=== PATIENT | male | born 1945 | race Caucasian/White ===

== ENCOUNTER → 2018-11-11 | Outpatient (CLI) | payer MEDICARE ==
--- NOTE | 2018-11-11 18:39 | MR ---
EXAMINATION TYPE: MR cervical spine wo con DATE OF EXAM: 11/11/2018 COMPARISON: None HISTORY: Radiculopathy TECHNIQUE: Multiplanar, multisequence images of the cervical spine were acquired. C2-C3: Degenerative disc disease and facet arthropathy with marked changes at the left. Uncovertebral joint hypertrophy noted. Findings result in moderate left-sided foraminal encroachment and mild righ t-sided foraminal encroachment. Ligamentum flavum hypertrophy noted. C3-C4: Degenerative disc disease and bilateral facet arthropathy greater on the left. There is uncove rtebral joint hypertrophy which contributes to moderate severe left-sided foraminal encroachment and moderate right foraminal encroachment. Central disc bulging with no discrete herniation or canal sten osis C4-C5: Degenerative disc disease with bilateral facet arthropathy greater on the right. Bilateral unc overtebral joint hypertrophy and there is severe bilateral foraminal encroachment. No canal stenosis or disc herniation. C5-C6: Degenerative disc disease with broad-based central disc bulging. There is facet arthropathy an d mild to moderate bilateral foraminal encroachment. There is borderline central stenosis. There is a 1 to 2 mm retrolisthesis of C5 relative to C6. C6-C7: Degenerative disc disease with broad-based disc bulging and mild central stenosis. Facet arthr opathy is marked with moderate to severe bilateral foraminal encroachment C7-T1: No disc herniation or canal stenosis. Neural foramina remain patent. Degenerative disc noted. Cervical segments are intact. . Cervical spinal cord is of normal signal. Craniovertebral junction relationships are within normal limits. IMPRESSION: 1. There is multilevel degenerative disc disease and multilevel severe facet arthropathy resulting in multilevel moderate to severe foraminal encroachment as discussed above. 2. Borderline central stenosis C5-C6 due to disc bulging and hypertrophic changes. 3. Mild central stenosis C6-C7 due to broad-based disc bulging and hypertrophic changes.
== END | disposition home or self-care (01) ==
LOC: RADMRIMAIN 11:50
PROVIDERS: ATTEND Family Medicine
DX: M48.02 Spinal stenosis, cervical region (principal); M50.11 Cervical disc disorder with radiculopathy, high cervical region; M50.822 Other cervical disc disorders at C5-C6 level
CPT/HCPCS: 72141

== ENCOUNTER 2021-03-23 10:24 | Inpatient (IN) | payer MEDICARE ==
--- NOTE | 2021-03-23 11:09 | ED ---
General Adult HPI - General Chief complaint: Shortness of Breath Stated complaint: SOB Time Seen by Provider: 03/23/21 10:34 Source: patient Mode of arrival: ambulatory - History of Present Illness Initial comments: Dictation was produced using [employer] dictation software. please excuse any grammatical, word or spelling errors. Chief Complaint: 75-year-old male with past medical history of coronary artery disease status post coronary artery bypass grafting presents emergency for exertional dyspnea worsening especially over the last 2 days History of Present Illness: 74 year old male who has past medical history of heart attack, coronary artery disease. States that 1989 he had coronary artery bypass grafting. States his been fine until 2007. Slowly thereafter he started having worsening shortness of breath. The last 2 days his been significantly w orse to the point where he feels very winded even after getting up to take 10 steps. Denies any symptoms at rest. His symptoms go away at rest. His family member convinced him to come and be evaluated for heart issues. Denies any fever. No chest pain. No leg swelling. Sometimes he gets left calf pain. The ROS documented in this emergency department record has been reviewed and confirmed by me. Those systems with pertinent positive or negative responses have been documented in the HPI. All other systems are other negative and/or noncontributory. PHYSICAL EXAM: General Impression: Alert and oriented x3, not in acute distress HEENT: Normocephalic atraumatic, extra-ocular movements intact, pupils equal and reactive to light bilaterally, mucous membranes moist. Cardiovascular: Heart regular rate and rhythm Chest: Able to complete full sentences, no retractions, no tachypnea, clear to auscultation bilaterally Abdomen: abdomen soft, non-tender, non-distended, no organomegaly Musculoskeletal: Pulses present and equal in all extremities, no peripheral edema Motor: no focal deficits noted Neurological: CN II-XII grossly intact, no focal motor or sensory deficits noted Skin: Intact with no visualized rashes Psych: Normal affect and mood ED course: 75-year-old male presents with acute exertional dyspnea his past medical history of coronary artery disease status post coronary artery bypass grafting as upon arrival are within acceptable limits. EKG does not show any signs of ischemia or infarction. He is asymptomatic at the bedside. Limited evaluation obtained. CBC unremarkable. Hemoglobin and platelet count stable. D-dimer is elevated 3.53. Metabolic panel shows troponin 0.051. Brain natruretic peptide of 2000. Coronavirus is negative. Chest x-ray shows mild cardiomegaly with strandy basilar atelectasis. CT angiogram of the chest shows subtle pulmonary embolus. CT evidence for right heart strain at this time. There is bilateral pulmonary burden. Given elevated troponin and findings of pulmonary embolus is concern for submassive PE. Patient has stable blood pressure and is well-appearing at this time. Case is discussed with Dr. Sanchez of basilar surgery and intensive care doctor, Dr. Lr. Stat echocardiogram ordered. Patient be admitted to the ICU. EKG interpretation: Ventricular rate 88, sinus rhythm,. 180, QRS 12, QTC 411. No GA prolongation, no QTC prolongation, no ST or T-wave changes noted. No old EKG for comparison. Overall, this EKG is nonspecific Review of Systems ROS Statement: Those systems with pertinent positive or pertinent negative responses have been documented in the HPI. ROS Other: All systems not noted in ROS Statement are negative. Past Medical History Past Medical History: Chest Pain / Angina, Myocardial Infarction ([place]) History of Any Multi-Drug Resistant Organisms: None Reported Past Surgical History: Coronary Bypass/CABG, Heart Catheterization With Stent Additional Past Surgical History / Comment(s): hemorroid removal Past Psychological History: No Psychological Hx Reported Smoking Status: Former smoker Past Alcohol Use History: Daily Past Drug Use History: None Reported Course Vital Signs 03/23/21 10:34 Temperature 98.4 F Pulse Rate 86 Respiratory 18 Rate Blood Pressure 166/91 O2 Sat by Pulse 94 L Oximetry Medical Decision Making - Lab Data Result diagrams: 03/23/21 10:53 03/23/21 10:53 Lab Results 03/23/21 03/23/21 03/23/21 Range/Units 10:53 10:53 10:53 WBC 4.9 (3.8-10.6) k/uL RBC 4.42 (4.30-5.90) m/uL Hgb 14.6 (13.0-17.5) gm/dL Hct 42.5 (39.0-53.0) % MCV 96.2 (80.0-100.0) fL MCH 33.1 (25.0-35.0) pg MCHC 34.5 (31.0-37.0) g/dL RDW 13.6 (11.5-15.5) % Plt Count 121 L (150-450) k/uL MPV 7.4 Neutrophils % 65 % Lymphocytes % 27 % Monocytes % 5 % Eosinophils % 1 % Basophils % 0 % Neutrophils # 3.2 (1.3-7.7) k/uL Lymphocytes # 1.3 (1.0-4.8) k/uL Monocytes # 0.3 (0-1.0) k/uL Eosinophils # 0.1 (0-0.7) k/uL Basophils # 0.0 (0-0.2) k/uL D-Dimer 3.53 H (<0.60) mg/L FEU Sodium 140 (137-145) mmol/L Potassium 4.5 (3.5-5.1) mmol/L Chloride 106 (98-107) mmol/L Carbon Dioxide 26 (22-30) mmol/L Anion Gap 8 mmol/L BUN 20 (9-20) mg/dL Creatinine 0.78 (0.66-1.25) mg/dL Est GFR (CKD-EPI)AfAm >90 (>60 ml/min/1.73 sqM) Est GFR (CKD-EPI)NonAf 88 (>60 ml/min/1.73 sqM) Glucose 201 H (74-99) mg/dL Calcium 9.6 (8.4-10.2) mg/dL Troponin I (0.000-0.034) ng/mL NT-Pro-B Natriuret Pep pg/mL Coronavirus (PCR) (Not Detectd) 03/23/21 03/23/21 03/23/21 Range/Units 10:53 10:53 10:53 WBC (3.8-10.6) k/uL RBC (4.30-5.90) m/uL Hgb (13.0-17.5) gm/dL Hct (39.0-53.0) % MCV (80.0-100.0) fL MCH (25.0-35.0) pg MCHC (31.0-37.0) g/dL RDW (11.5-15.5) % Plt Count (150-450) k/uL MPV Neutrophils % % Lymphocytes % % Monocytes % % Eosinophils % % Basophils % % Neutrophils # (1.3-7.7) k/uL Lymphocytes # (1.0-4.8) k/uL Monocytes # (0-1.0) k/uL Eosinophils # (0-0.7) k/uL Basophils # (0-0.2) k/uL D-Dimer (<0.60) mg/L FEU Sodium (137-145) mmol/L Potassium (3.5-5.1) mmol/L Chloride (98-107) mmol/L Carbon Dioxide (22-30) mmol/L Anion Gap mmol/L BUN (9-20) mg/dL Creatinine (0.66-1.25) mg/dL Est GFR (CKD-EPI)AfAm (>60 ml/min/1.73 sqM) Est GFR (CKD-EPI)NonAf (>60 ml/min/1.73 sqM) Glucose (74-99) mg/dL Calcium (8.4-10.2) mg/dL Troponin I 0.051 H* (0.000-0.034) ng/mL NT-Pro-B Natriuret Pep 2010 pg/mL Coronavirus (PCR) Not Detected (Not Detectd) Critical Care Time Critical Care Time: Yes Total Critical Care Time: 33 Disposition Clinical Impression: Pulmonary embolism Disposition: ADMITTED IP TO THIS HOSP Condition: Critical Referrals: Linda Bob MD [Primary Care Provider] - 1-2 days
[2021-03-23 11:11] LABS: Basophils % (A) 0 %; Eosinophils # (A) 0.1 k/uL (0-0.7); Eosinophils % (A) 1 %; HCT 42.5 % (39.0-53.0); HGB 14.6 gm/dL (13.0-17.5); Lymphocytes # (A) 1.3 k/uL (1.0-4.8); Lymphocytes % (A) 27 %; MCH 33.1 pg (25.0-35.0); MCHC 34.5 g/dL (31.0-37.0); MCV 96.2 fL (80.0-100.0); Mean Platelet Volume 7.4; Monocytes # (A) 0.3 k/uL (0-1.0); Monocytes % (A) 5 %; Neutrophils # (A) 3.2 k/uL (1.3-7.7); Neutrophils % (A) 65 %; Platelet Count 121 k/uL (150-450); RBC 4.42 m/uL (4.30-5.90); RDW 13.6 % (11.5-15.5); WBC 4.9 k/uL (3.8-10.6)
[2021-03-23 11:29] LABS: African American GFR (CKD) >90 (>60 ml/min/1.73 sqM); Anion Gap 8 mmol/L; Blood Urea Nitrogen 20 mg/dL (9-20); Calcium 9.6 mg/dL (8.4-10.2); Carbon Dioxide 26 mmol/L (22-30); Chloride 106 mmol/L (98-107); Glucose 201 mg/dL (74-99); Non-African American GFR(CKD) 88 (>60 ml/min/1.73 sqM); Potassium 4.5 mmol/L (3.5-5.1); Sodium 140 mmol/L (137-145)
--- NOTE | 2021-03-23 12:17 | XR ---
EXAMINATION TYPE: XR chest 1V portable DATE OF EXAM: 03/23/2021 Comparison: None Clinical History: 75-year-old male short of breath, dyspnea Findings: Median sternotomy wires are present. Post-CABG clips mediastinum. Heart mildly enlarged. Interstitial prominence largely chronic appearing. No shashank consolidation or pleural effusion. Some strandy atele ctasis in the lower lungs. Impression: Mild cardiomegaly and some strandy basilar atelectasis.
[2021-03-23] MEDS ORDERED: HEPARIN SODIUM 1,000 UN/ML (10ML VL) IV PRN (12:29)
[2021-03-23] MEDS ORDERED: HEPARIN SODIUM 1,000 UN/ML (10ML VL) IV ONE (12:29)
--- NOTE | 2021-03-23 12:32 | CT ---
EXAMINATION TYPE: CT angio chest DATE OF EXAM: 03/23/2021 COMPARISON: Radiograph same day HISTORY: 75-year-old male Elevated d dimer, SOB TECHNIQUE: Contiguous axial scanning of the chest performed with IV Contrast, patient injected with 1 00 mL of Isovue 370. Coronal/sagittal MIP reconstructions performed. CT DLP: 428.5 mGycm Automated exposure control for dose reduction was used. FINDINGS: Median sternotomy wires are present with postoperative clips the mediastinum. Heart is borderline enlarged. No flattening of the interventricular septum or reflux of contrast into the hepatic veins. There is some reflux into the IVC noted. Ectasia of the upper descending thoracic aorta 3.3 cm. Mild arthritic arch calcifications. The measur ements are consistent branching anatomy. No thoracic lymph adenopathy by CT size criteria. There is nonocclusive saddle embolism. Additional extensive clot extending throughout the right upper lobe and to a lesser extent throughout all of the right middle and right lower lobe. On the left, there is segmental branch clot throughout the left upper lobe, lingula, and branches of the left lower lobe. Mild emphysematous change. No consolidation or pleural effusion. 5 mm posterior right midlung pulmonary nodule, axial image 99. Subpleural opacity measuring 1.7 cm posteromedial left lower lobe could represent a developing pulmon julissa infarct. No pleural effusion. Visualized upper abdomen shows no gross adenopathy. Bones: [facility] within the mid and lower thoracic spine. IMPRESSION: 1. EXAM POSITIVE FOR BILATERAL PULMONARY EMBOLI INCLUDING SADDLE EMBOLUS. BURDEN IS RIGHT GREATER THOMAS N LEFT. MODERATE TO SEVERE BURDEN ON THE RIGHT EXTENDING THROUGHOUT THE RIGHT UPPER, MIDDLE, AND LOWE R LOBES. MORE MILD BURDEN ON THE LEFT. 2. NO CT EVIDENCE FOR RIGHT HEART STRAIN AT THIS TIME. 3. COPD WITH MILD EMPHYSEMA. A 5 MM RIGHT MID LUNG PULMONARY NODULE SHOULD BE REASSESSED IN 6 MONTHS. CRITICAL FINDINGS CALLED TO THE ER AND GIVEN TO DR. OLVERA AT 12:28 PM.
[2021-03-23] MEDS ORDERED: NALOXONE 0.4 MG/ML 1 ML VIAL IV PRN (12:44)
[2021-03-23] MEDS ORDERED: ACETAMINOPHEN TAB 325 MG TAB PO PRN (12:44)
[2021-03-23] MEDS: HEPARIN SOD,PORK IN 0.45% NACL 25,000 UNIT in 0.45% NACL 1 250ML.BAG IV SCH (12:49)
[2021-03-23] MEDS: SODIUM CHLORIDE 0.9% 1,000 ML IV SCH ×2 (12:52→20:15)
[2021-03-23] MEDS: PANTOPRAZOLE 40 MG/10 ML VIAL IV SCH (12:52)
--- NOTE | 2021-03-23 13:49 | P.HPIM ---
History of Present Illness This is a pleasant 75 years old male with past medical history of coronary artery disease status post stent placement and CABG Patient presents with gradually worsening dyspnea over one month, ago he had some difficulty of breathing when doing his shoes laces but over the last 2 days was more severe dyspnea which affected his ability to walk He denies chest pain or hemoptysis. No leg pain or swelling. No abdominal pain or diarrhea. No vomiting. No urinary symptoms. No headache or dizziness or weakness Vitals are stable and patient is saturating 94% on room air Unremarkable CBC, BMP D-dimer is slightly elevated at 3.5. Troponin is mildly elevated at 0.05. Coronavirus not detected CT of the chest: Exam is positive for bilateral pulmonary emboli included saddle embolus. [place] is right greater than left. Moderate to severe burden on the right extending throughout the right upper, middle and lower lobes. Mild emphysema. A 5 mm right mid lung pulmonary nodule with recommendation for follow-up in 6 months Review of Systems CONSTITUTIONAL: No fever, no malaise, no fatigue. HEENT: No recent visual problems or hearing problems. Denied any sore throat. CARDIOVASCULAR: No orthopnea, PND, no palpitations, no syncope. PULMONARY: No chest wall tenderness, no sneezing hemoptysis. GASTROINTESTINAL: No diarrhea, no nausea, no vomiting, no abdominal pain. Normoactive bowel sounds. NEUROLOGICAL: No headaches, no weakness, no numbness. HEMATOLOGICAL: Denies any bleeding or petechiae. GENITOURINARY: Denies any burning micturition, frequency, or urgency. MUSCULOSKELETAL/RHEUMATOLOGICAL: Denies any joint pain, swelling, or any muscle pain. ENDOCRINE: Denies any polyuria or polydipsia. Past Medical History Past Medical History: Chest Pain / Angina, Myocardial Infarction ([place]) History of Any Multi-Drug Resistant Organisms: None Reported Past Surgical History: Coronary Bypass/CABG, Heart Catheterization With Stent Additional Past Surgical History / Comment(s): hemorroid removal Past Psychological History: No Psychological Hx Reported Smoking Status: Former smoker Past Alcohol Use History: Daily Past Drug Use History: None Reported Medications and Allergies Home Medications Medication Instructions Recorded Confirmed Type Aspirin EC [Ecotrin] 325 mg PO DAILY 03/23/21 03/23/21 History Multivitamins, Thera [Multivitamin 1 tab PO DAILY 03/23/21 03/23/21 History (formulary)] Prostate Supplement 1 tab PO DAILY 03/23/21 03/23/21 History Allergies Allergy/AdvReac Type Severity Reaction Status Date / Time cephalexin [From Keflex] Allergy Rash/Hives Verified 03/23/21 13:33 Physical Exam Vitals: Vital Signs Temp Pulse Resp BP Pulse Ox 03/23/21 10:34 98.4 F 86 18 166/91 94 L Intake and Output 03/22/21 03/23/21 03/23/21 22:59 06:59 14:59 Other: Weight 88.904 kg GENERAL: The patient is alert and oriented x3, not in any acute distress. Well developed, well nourished. HEENT: Pupils are round and equally reacting to light. EOMI. No scleral icterus. No conjunctival pallor. Normocephalic, atraumatic. No pharyngeal erythema. No thyromegaly. CARDIOVASCULAR: S1 and S2 present. No murmurs, rubs, or gallops. PULMONARY: Chest is clear to auscultation, no wheezing or crackles. ABDOMEN: Soft, nontender, nondistended, normoactive bowel sounds. No palpable organomegaly. MUSCULOSKELETAL: No joint swelling or deformity. EXTREMITIES: No cyanosis, clubbing, or pedal edema. NEUROLOGICAL: Gross neurological examination did not reveal any focal deficits. SKIN: No rashes. No petechiae Results CBC & Chem 7: 03/23/21 10:53 03/23/21 10:53 Labs: Abnormal Lab Results - Last 24 Hours (Table) 03/23/21 03/23/21 03/23/21 Range/Units 10:53 10:53 10:53 Plt Count 121 L (150-450) k/uL D-Dimer 3.53 H (<0.60) mg/L FEU Glucose 201 H (74-99) mg/dL Troponin I (0.000-0.034) ng/mL 03/23/21 Range/Units 10:53 Plt Count (150-450) k/uL D-Dimer (<0.60) mg/L FEU Glucose (74-99) mg/dL Troponin I 0.051 H* (0.000-0.034) ng/mL Assessment and Plan Assessment: Acute saddle pulmonary embolism Mild acute hypoxic respiratory failure History of coronary artery disease status post PCI and CABG Plan: This is a pleasant 75 years old male who presents with signs of PE Continue with heparin drip Check echocardiogram and Leg ultrasound Pulmonary and vascular team consult Labs and medication were reviewed.. Continue same treatment. Continue with symptomatic treatment. Resume home medication. Monitor lytes and vitals. DVT and GI prophylaxis. Further recommendations depends on the clinical course of the patient DVT prophylaxis: heparin GI Prophylaxis: Pepcid
--- NOTE | 2021-03-23 14:13 | P.CNPUL ---
History of Present Illness Consult date: 03/23/21 Requesting physician: Wong Porras Reason for consult: dyspnea, abnormal CXR/CT Chief complaint: Shortness of breath on exertion History of present illness: This is a very pleasant 75-year-old gentleman who follows with Dr. Freire as his primary care provider. He has a history of coronary artery disease with previous PTCA [place] in 1989 and subsequent coronary artery bypass grafting in 2007. Recently he has started to develop significant shortness of breath with minimal exertion. He presented here to the emergency room for the same. White count 4.9. Hemoglobin 14.6. Platelets 121. D-dimer 3.53. Sodium 140. Potassium 4.5. Creatinine 0.78. Troponin 0.051. ProBNP 2010. Coronal virus not detected. X-ray revealed some mild cardiomegaly with strandy basilar atelectasis. CT angiogram revealed bilateral pulmonary emboli including saddle embolus. Pertinent his right greater than left. Moderate to severe burden on the right extending throughout the right upper, middle and lower lobes. More mild burden on the left. No CT evidence for right heart strain. Echocardiogram is pending. Cardiac rhythm is sinus. He is seen in consultation in the emergency room. He is currently resting fairly comfortably on the stretcher. He denies any worsening shortness of breath, cough or congestion. No hemoptysis. He is maintaining good O2 saturations in the 90s on room air at rest. He is afebrile. Hemodynamically stable. He denies any chest pain. The patient denies any extended travel. No trauma. No history of cancer. He has been initiated on a heparin drip. Review of Systems REVIEW OF SYSTEMS: CONSTITUTIONAL: Denies any recent significant weight loss or weight gain. EYES: Denies change in vision. EARS, NOSE, MOUTH, THROAT: Denies headaches, denies sore throat. CARDIOVASCULAR: Denies chest pain, palpitations or syncopal episodes. RESPIRATORY: Positive for shortness of breath on exertion, no cough, congestion or hemoptysis. GASTROINTESTINAL: Denies change in appetite, denies abdominal pain GENITOURINARY: Denies hematuria, denies infections. MUSKULOSKELETAL: Denies pain, denies swelling. INTEGUMENTARY: Denies rash, denies eczema. NEUROLOGICAL: Denies recent memory loss, no recent seizure activity. PSYCHIATRIC: Denies anxiety, denies depression. HEMATOLOGIC/LYMPHATIC: Denies anemia, denies enlarged lymph nodes. Past Medical History Past Medical History: Chest Pain / Angina, Myocardial Infarction ([place]) History of Any Multi-Drug Resistant Organisms: None Reported Past Surgical History: Coronary Bypass/CABG, Heart Catheterization With Stent Additional Past Surgical History / Comment(s): hemorroid removal Past Psychological History: No Psychological Hx Reported Smoking Status: Former smoker Past Alcohol Use History: Daily Past Drug Use History: None Reported Medications and Allergies Home Medications Medication Instructions Recorded Confirmed Type Aspirin EC [Ecotrin] 325 mg PO DAILY 03/23/21 03/23/21 History Multivitamins, Thera [Multivitamin 1 tab PO DAILY 03/23/21 03/23/21 History (formulary)] Prostate Supplement 1 tab PO DAILY 03/23/21 03/23/21 History Allergies Allergy/AdvReac Type Severity Reaction Status Date / Time cephalexin [From Keflex] Allergy Rash/Hives Verified 03/23/21 13:33 Physical Exam Vitals: Vital Signs Temp Pulse Resp BP Pulse Ox 03/23/21 12:53 95 18 154/74 97 03/23/21 10:34 98.4 F 86 18 166/91 94 L Intake and Output 03/22/21 03/23/21 03/23/21 22:59 06:59 14:59 Other: Weight 88.904 kg GENERAL EXAM: Alert, very pleasant 75-year-old gentleman, on room air, fairly comfortable in no apparent distress. HEAD: Normocephalic. EYES: Normal reaction of pupils, equal size. NOSE: Clear with pink turbinates. THROAT: No erythema or exudates. NECK: No masses, no JVD. CHEST: No chest wall deformity. LUNGS: Equal air entry with no crackles, wheeze, rhonchi or dullness. CVS: S1 and S2 normal with no audible murmur, regular rhythm. ABDOMEN: No hepatosplenomegaly, normal bowel sounds, no guarding or rigidity. SPINE: No scoliosis or deformity SKIN: No rashes CENTRAL NERVOUS SYSTEM: No focal deficits, tone is normal in all 4 extremities. EXTREMITIES: There is no peripheral edema. No clubbing, no cyanosis. Peripheral pulses are intact. Results - Laboratory Findings CBC and BMP: 03/23/21 10:53 03/23/21 10:53 PT/INR, D-dimer D-Dimer 3.53 mg/L FEU (<0.60) H 03/23/21 10:53 Abnormal lab findings: Abnormal Labs 03/23/21 03/23/21 03/23/21 10:53 10:53 10:53 Plt Count 121 L D-Dimer 3.53 H Glucose 201 H Troponin I 03/23/21 10:53 Plt Count D-Dimer Glucose Troponin I 0.051 H* - Diagnostic Findings Chest x-ray: image reviewed CT scan - chest: image reviewed Assessment and Plan Assessment: 1 Dyspnea on exertion secondary to acute saddle emboli with burden right greater than left. Moderate to severe burden on the right extending throughout the right upper, middle and lower lobes. More mild burden on the left. 2 History of coronary artery disease with previous PTCA in 1989 and coronary artery bypass grafting 2007 3 Mild troponin leak Plan: The patient was seen and evaluated by Dr. Lr Continue heparin drip for now Echocardiogram pending Vascular services consulted for possible EKOS We will monitor him closely in the intensive care unit We will continue to follow and make further recommendations based on his clinical status I, the cosigning physician, performed a history & physical examination of the patient. Lungs sounds are clear. Maintaining good O2 saturations in the 90s on room air. I discussed the assessment and plan of care with my nurse practitioner, Twila Hurtado. I attest to the above consultation as dictated by her. Time with Patient: Greater than 30
[2021-03-23 14:17] LABS: Glucose,Whole Blood 132 mg/dL (75-99)
[2021-03-23] MEDS ORDERED: amLODIPine 5 MG TAB PO STA (14:28)
--- NOTE | 2021-03-23 15:44 | P.GSCN ---
History of Present Illness Consult date: 03/23/21 History of present illness: Leo is a 75-year-old male who came to the hospital with issues of significant shortness of breath over the past 2 days. He has never experienced anything like this in the past. He denies any history of blood clots that he is aware of. On occasion he has a lump in his lower extremity that has tenderness so he rubs and it seems to go away. This does, and go and he did have one recently. His never been told otherwise he has had blood clots. He states that his breathing is significantly worse with ambulation. He denies any recent travel, recent surgical interventions or illnesses. Review of Systems 14 point review of systems performed. Pertinent positives and negatives per the HPI Past Medical History Past Medical History: Chest Pain / Angina, Myocardial Infarction (ID) Last Myocardial Infarction Date:: 2007 History of Any Multi-Drug Resistant Organisms: None Reported Past Surgical History: Coronary Bypass/CABG, Heart Catheterization Additional Past Surgical History / Comment(s): hemorroid removal (3) Cyst removal Past Psychological History: No Psychological Hx Reported Smoking Status: Former smoker Past Alcohol Use History: Daily Additional Past Alcohol Use History / Comment(s): 2 beers a day, and a half a glass of vodka daily Past Drug Use History: None Reported Medications and Allergies Home Medications Medication Instructions Recorded Confirmed Type Aspirin EC [Ecotrin] 325 mg PO DAILY 03/23/21 03/23/21 History Multivitamins, Thera [Multivitamin 1 tab PO DAILY 03/23/21 03/23/21 History (formulary)] Prostate Supplement 1 tab PO DAILY 03/23/21 03/23/21 History Allergies Allergy/AdvReac Type Severity Reaction Status Date / Time cephalexin [From Keflex] Allergy Rash/Hives Verified 03/23/21 13:33 Surgical - Exam Vital Signs Temp Pulse Resp BP Pulse Ox 98.4 F 86 18 166/91 94 L 03/23/21 10:34 03/23/21 10:34 03/23/21 10:34 03/23/21 10:34 03/23/21 10:34 Gen. is a pleasant and cooperative male in no acute distress. HEENT is normocephalic, atraumatic, extraocular motion intact. Resting comfortably on room air. Heart mildly tachycardic. Lungs are clear bilaterally. Abdomen is soft, nontender nondistended. Extremity show no clubbing, cyanosis or edema. Normal mood and affect. Cranial are 2 through [address] angiogram of the chest is reviewed. There is significant thrombus burden with reflux of contrast into the superior vena cava. Labs are reviewed and troponin is elevated. Echocardiogram is reviewed, the right ventricular pressure is 68 with evidence of a mildly dilated right ventricle - Labs 03/23/21 10:53 03/23/21 10:53 Abnormal Lab Results - Last 24 Hours (Table) 03/23/21 03/23/21 03/23/21 Range/Units 10:53 10:53 10:53 Plt Count 121 L (150-450) k/uL D-Dimer 3.53 H (<0.60) mg/L FEU Glucose 201 H (74-99) mg/dL POC Glucose (mg/dL) (75-99) mg/dL Troponin I (0.000-0.034) ng/mL 03/23/21 03/23/21 Range/Units 10:53 14:15 Plt Count (150-450) k/uL D-Dimer (<0.60) mg/L FEU Glucose (74-99) mg/dL POC Glucose (mg/dL) 132 H (75-99) mg/dL Troponin I 0.051 H* (0.000-0.034) ng/mL Diabetes panel 03/23/21 Range/Units 10:53 Sodium 140 (137-145) mmol/L Potassium 4.5 (3.5-5.1) mmol/L Chloride 106 (98-107) mmol/L Carbon Dioxide 26 (22-30) mmol/L BUN 20 (9-20) mg/dL Creatinine 0.78 (0.66-1.25) mg/dL Glucose 201 H (74-99) mg/dL Calcium 9.6 (8.4-10.2) mg/dL Calcium panel 03/23/21 Range/Units 10:53 Calcium 9.6 (8.4-10.2) mg/dL Pituitary panel 03/23/21 Range/Units 10:53 Sodium 140 (137-145) mmol/L Potassium 4.5 (3.5-5.1) mmol/L Chloride 106 (98-107) mmol/L Carbon Dioxide 26 (22-30) mmol/L BUN 20 (9-20) mg/dL Creatinine 0.78 (0.66-1.25) mg/dL Glucose 201 H (74-99) mg/dL Calcium 9.6 (8.4-10.2) mg/dL Adrenal panel 03/23/21 Range/Units 10:53 Sodium 140 (137-145) mmol/L Potassium 4.5 (3.5-5.1) mmol/L Chloride 106 (98-107) mmol/L Carbon Dioxide 26 (22-30) mmol/L BUN 20 (9-20) mg/dL Creatinine 0.78 (0.66-1.25) mg/dL Glucose 201 H (74-99) mg/dL Calcium 9.6 (8.4-10.2) mg/dL Assessment and Plan Assessment: Submassive bilateral pulmonary embolism with evidence of severe pulmonary hypertension, RVSP 68 mmHg Troponin leak secondary to above Exertional dyspnea secondary to #1 Plan: Given his findings overall plan to go forward with thrombolysis to help improve his ongoing respiratory status and cardiac function in the future. Risks and benefits were discussed with the patient and his son who seemingly understand and are willing to proceed as such. We'll check bilateral lower extremity venous duplex for possible blood clot.
--- NOTE | 2021-03-23 16:15 | US ---
EXAMINATION TYPE: US venous doppler duplex LE DATE OF EXAM: 03/23/2021 4:03 PM COMPARISON: None CLINICAL HISTORY: DVT. Newly diagnosed pulmonary embolism. Pain. SIDE PERFORMED: Bilateral TECHNIQUE: The lower extremity deep venous system is examined utilizing real time linear array sonog anup with graded compression, doppler sonography and color-flow sonography. VESSELS IMAGED: Common Femoral Vein Deep Femoral Vein Greater Saphenous Vein * Femoral Vein Popliteal Vein Small Saphenous Vein * Proximal Calf Veins (* superficial vessels) Right Leg: DVT in one of 2 calf veins. Left Leg: DVT in distal left popliteal vein and one of 2 upper calf veins, and DVT then in PTV mid a nd distally. Tech findings reported to Kelly INTERNIST MEDICAL DOCTOR MD, at exam's end. JJ Grayscale, color doppler, spectral doppler imaging performed of the deep veins of the bilateral lower extremities. IMPRESSION: Some DVT in smaller vessels below the knees bilaterally more prominent on the left as det josiah above.
[2021-03-23] MEDS: CLEVIDIPINE BUTYRATE 25 MG in EMPTY BAG 1 BAG IV SCH (21:07)
[2021-03-24] MEDS: CLEVIDIPINE BUTYRATE 25 MG in EMPTY BAG 1 BAG IV SCH ×5 (01:41→21:00)
[2021-03-24 05:09] LABS: Basophils % (A) 0 %; Eosinophils # (A) 0.1 k/uL (0-0.7); Eosinophils % (A) 1 %; HCT 42.5 % (39.0-53.0); HGB 14.3 gm/dL (13.0-17.5); Lymphocytes # (A) 1.3 k/uL (1.0-4.8); Lymphocytes % (A) 23 %; MCH 32.7 pg (25.0-35.0); MCHC 33.8 g/dL (31.0-37.0); MCV 96.8 fL (80.0-100.0); Mean Platelet Volume 7.8; Monocytes # (A) 0.3 k/uL (0-1.0); Monocytes % (A) 5 %; Neutrophils % (A) 70 %; Platelet Count 128 k/uL (150-450); RBC 4.39 m/uL (4.30-5.90); RDW 13.6 % (11.5-15.5); WBC 5.7 k/uL (3.8-10.6)
[2021-03-24 05:33] LABS: African American GFR (CKD) >90 (>60 ml/min/1.73 sqM); Anion Gap 7 mmol/L; Blood Urea Nitrogen 12 mg/dL (9-20); Calcium 8.8 mg/dL (8.4-10.2); Carbon Dioxide 26 mmol/L (22-30); Chloride 104 mmol/L (98-107); Glucose 163 mg/dL (74-99); Non-African American GFR(CKD) >90 (>60 ml/min/1.73 sqM); Potassium 4.3 mmol/L (3.5-5.1); Sodium 137 mmol/L (137-145)
[2021-03-24] MEDS: HEPARIN SOD,PORK IN 0.45% NACL 25,000 UNIT in 0.45% NACL 1 250ML.BAG IV SCH (06:43)
[2021-03-24] MEDS ORDERED: HEPARIN SOD,PORK IN 0.45% NACL 25,000 UNIT in 0.45% NACL 1 250ML.BAG IV SCH ×3 (08:00→23:45)
[2021-03-24] MEDS ORDERED: ALTEPLASE 10 MG in SODIUM CHLORIDE 0.9% 100 ML IV ONE ×4 (08:00)
[2021-03-24] MEDS ORDERED: LIDOCAINE URO-JET JELLY 2% 5 ML KIT ONE (08:25)
[2021-03-24] MEDS ORDERED: ALTEPLASE 2 MG VIAL (CATHFLO) IV STA (08:36)
[2021-03-24] MEDS: SODIUM CHLORIDE 0.9% 1,000 ML IV SCH ×4 (08:40→15:19)
[2021-03-24] MEDS ORDERED: LIDOCAINE 1% INJ 10MG/ML (20 ML MDV) ONE (08:49)
[2021-03-24] MEDS ORDERED: MIDAZOLAM 2 MG/2 ML VIAL IV ONE (08:58)
[2021-03-24] MEDS ORDERED: amLODIPine 5 MG TAB PO SCH (09:00)
[2021-03-24] MEDS ORDERED: LIDOCAINE 1% INJ 10MG/ML (20 ML MDV) SQ ONE (09:02)
[2021-03-24] MEDS ORDERED: fentaNYL (PF) 50 MCG/ML 2 ML AMP ONE (09:04)
[2021-03-24] MEDS ORDERED: IV FLUID CONTINUATION 900 ML IV ONE (09:09)
[2021-03-24] MEDS ORDERED: fentaNYL (PF) 50 MCG/ML 2 ML AMP IV ONE (09:09)
[2021-03-24] MEDS ORDERED: MIDAZOLAM 2 MG/2 ML VIAL IVP ONE (09:20)
[2021-03-24] MEDS ORDERED: ALTEPLASE BOLUS 1 MG/1 ML SYRINGE IV ONE (09:33)
[2021-03-24] MEDS ORDERED: ALTEPLASE 2 MG VIAL (CATHFLO) ONE (09:33)
--- NOTE | 2021-03-24 09:44 | P.OP ---
Date of Procedure: 03/24/21 Description of Procedure: Preoperative diagnosis: Submassive bilateral pulmonary emboli Postoperative diagnosis: Same Procedure: #1 ultrasound-guided right common femoral vein access of central venous catheters x2 #2 selective right and selective left pulmonary angiogram #3 Initiation of pulmonary pharmacal mechanical thrombolysis with EKOS #4 Moderate conscious sedation x 35 Surgeon: Edith Sanchez D.O. EBL: Less than 10 mL IV fluids: See records Urine output: See records Drains: None Complications: None immediately apparent Condition: Stable to ICU Operative indication and findings: Patient is a 75-year-old man who began having increasing shortness of breath in the past few days. He was found to have saddle pulmonary emboli with submassive findings. He had reflux in the superior vena cava, troponin leak as well as a RVSP greater than 60 per conversation with cardiology. Given these findings he was offered ekos-thrombolytics. Risks and benefits were discussed. The patient seen and understood and was willing to proceed as such Procedure in detail: [The patient was taken to the radiology suite and placed in supine position. Bilateral groins are prepped and draped in usual sterile fashion. A preprocedure timeout was performed, all parties were in agreement. The right common femoral vein was identified and found to be compressible without any evidence of visible thrombus. The skin overlying was anesthetized 1% lidocaine plain. A multipurpose needle was used and the vein was accessed and a wire was placed. This was done again through a separate access site. 2, 6-Polish sheaths were placed. Using catheters and wires the right and left pulmonary arteries were accessed. Pulmonic angiograms were performed confirming positioning. An EKOS ultrasonic pharmacomechanical infusion catheter was placed and confirmed appropriate positioning within the pulmonary arteries. 2 mg of TPA was placed in each catheter. The catheters were hooked up to appropriate fluid infusions for the Bris[place] II protocol for submassive pulmonary emboli. The sheaths were sutured in place. Dressing was placed. The patient was transferred back to ICU in stable condition having tolerated the procedure well.
[2021-03-24] MEDS ORDERED: IOPAMIDOL-250 100ML BTL IV ONE (09:55)
[2021-03-24] MEDS: PANTOPRAZOLE 40 MG/10 ML VIAL IV SCH (10:34)
[2021-03-24] MEDS: amLODIPine 5 MG TAB PO SCH ×2 (10:34→21:47)
[2021-03-24] MEDS: LOSARTAN 50 MG TAB PO SCH (10:35)
--- NOTE | 2021-03-24 10:44 | P.PN ---
Subjective This is a pleasant 75 years old male with past medical history of coronary artery disease status post stent placement and CABG Patient presents with gradually worsening dyspnea over one month, ago he had some difficulty of breathing when doing his shoes laces but over the last 2 days was more severe dyspnea which affected his ability to walk He denies chest pain or hemoptysis. No leg pain or swelling. No abdominal pain or diarrhea. No vomiting. No urinary symptoms. No headache or dizziness or weakness Vitals are stable and patient is saturating 94% on room air Unremarkable CBC, BMP D-dimer is slightly elevated at 3.5. Troponin is mildly elevated at 0.05. Coronavirus not detected CT of the chest: Exam is positive for bilateral pulmonary emboli included saddle embolus. [place] is right greater than left. Moderate to severe burden on the right extending throughout the right upper, middle and lower lobes. Mild emphysema. A 5 mm right mid lung pulmonary nodule with recommendation for follow-up in 6 months 03/24/2021 Patient remains in the ICU. He is status post thrombolysis with EKOS and L2 paced by vascular surgery team. Also he is kept on heparin drip and normal saline. Other than that he is hemodynamically stable and saturating 93% on room air. Hemoglobin is stable Norvasc and losartan were added today. Ultrasound of the legs showing bilateral total the venous thrombosis Objective - Vital Signs Vital signs: Vital Signs Temp 98.2 F 03/24/21 08:00 Pulse 82 03/24/21 08:00 Resp 9 L 03/24/21 08:00 BP 133/81 03/24/21 08:00 Pulse Ox 93 L 03/24/21 08:00 Intake & Output 03/23/21 03/24/21 03/24/21 18:59 06:59 18:59 Intake Total 325.892 96.8 Output Total 250 1125 100 Balance -250 -799.108 -3.2 Weight 88.904 kg 87.5 kg Intake: IV 50 Intake, IV Titration 325.892 46.8 Amount Clevidipine Butyrate 25 83.000 46.8 mg In Empty Bag 1 bag @ 1 MG/HR 2 mls/hr IV .Q24H [facility] Rx#:[id number] Heparin Sod,Pork in 0.45% 242.892 NaCl 25,000 unit In 0.45 % NaCl 1 250ml.bag @ 18 UNITS/KG/HR 16.003 mls/hr IV .[id number] [facility] Rx#: [id number] Sodium Chloride 0.9% 1, 0 000 ml @ 120 mls/hr IV . [id number] [facility] Rx#:[id number] Output: Urine 250 1125 100 Other: Voiding Method Urinal Urinal Urinal # Voids 1 # Bowel Movements 1 - Exam GENERAL: The patient is alert and oriented x3, not in any acute distress. Well developed, well nourished. HEENT: Pupils are round and equally reacting to light. EOMI. No scleral icterus. No conjunctival pallor. Normocephalic, atraumatic. No pharyngeal erythema. No thyromegaly. CARDIOVASCULAR: S1 and S2 present. No murmurs, rubs, or gallops. PULMONARY: Chest is clear to auscultation, no wheezing or crackles. ABDOMEN: Soft, nontender, nondistended, normoactive bowel sounds. No palpable organomegaly. MUSCULOSKELETAL: No joint swelling or deformity. EXTREMITIES: No cyanosis, clubbing, or pedal edema. NEUROLOGICAL: Gross neurological examination did not reveal any focal deficits. SKIN: No rashes. no petechiae. - Labs CBC & Chem 7: 03/24/21 04:51 03/24/21 04:51 Labs: Abnormal Lab Results - Last 24 Hours (Table) 03/23/21 03/23/21 03/23/21 Range/Units 10:53 10:53 10:53 Plt Count 121 L (150-450) k/uL APTT (22.0-30.0) sec D-Dimer 3.53 H (<0.60) mg/L FEU Glucose 201 H (74-99) mg/dL POC Glucose (mg/dL) (75-99) mg/dL Troponin I (0.000-0.034) ng/mL 03/23/21 03/23/21 03/23/21 Range/Units 10:53 14:15 18:23 Plt Count (150-450) k/uL APTT 91.4 H (22.0-30.0) sec D-Dimer (<0.60) mg/L FEU Glucose (74-99) mg/dL POC Glucose (mg/dL) 132 H (75-99) mg/dL Troponin I 0.051 H* (0.000-0.034) ng/mL 03/24/21 03/24/21 03/24/21 Range/Units 01:02 04:51 04:51 Plt Count 128 L (150-450) k/uL APTT 43.9 H (22.0-30.0) sec D-Dimer (<0.60) mg/L FEU Glucose 163 H (74-99) mg/dL POC Glucose (mg/dL) (75-99) mg/dL Troponin I (0.000-0.034) ng/mL Assessment and Plan Assessment: Acute saddle pulmonary embolism Mild acute hypoxic respiratory failure Bilateral total for DVT Hypertension Troponin leak secondary to pulmonary embolism History of coronary artery disease status post PCI and CABG Plan: This is a pleasant 75 years old male who presents with signs of PE Continue with heparin drip Continue with gentle hydration Pulmonary and vascular team consult Labs and medication were reviewed.. Continue same treatment. Continue with s ymptomatic treatment. Resume home medication. Monitor lytes and vitals. DVT and GI prophylaxis. Further recommendations depends on the clinical course of the patient DVT prophylaxis: heparin GI Prophylaxis: Ppi
[2021-03-24 10:57] LABS: Basophils % (A) 0 %; Eosinophils % (A) 0 %; HCT 44.6 % (39.0-53.0); HGB 15.2 gm/dL (13.0-17.5); Lymphocytes # (A) 0.6 k/uL (1.0-4.8); Lymphocytes % (A) 11 %; MCH 32.9 pg (25.0-35.0); MCHC 34.1 g/dL (31.0-37.0); MCV 96.7 fL (80.0-100.0); Mean Platelet Volume 7.7; Monocytes # (A) 0.3 k/uL (0-1.0); Monocytes % (A) 5 %; Neutrophils # (A) 4.3 k/uL (1.3-7.7); Neutrophils % (A) 83 %; Platelet Count 133 k/uL (150-450); RBC 4.61 m/uL (4.30-5.90); RDW 13.5 % (11.5-15.5); WBC 5.3 k/uL (3.8-10.6)
--- NOTE | 2021-03-24 10:59 | ECHOF ---
Referral Reason:PE MEASUREMENTS -------- HEIGHT: 170.2 cm WEIGHT: 88.9 kg BP: RVIDd: 3.5 cm (< 3.3) IVSd: 1.5 cm (0.6 - 1.1) LVIDd: 4.8 cm (3.9 - 5.3) LVPWd: 1.2 cm (0.6 - 1.1) IVSs: 1.6 cm LVIDs: 4.3 cm LVPWs: 1.3 cm Ao Diam: 2.9 cm (2.0 - 3.7) AV Cusp: 1.7 cm (1.5 - 2.6) LA Diam: 3.0 cm (2.7 - 3.8) MV E Brenton: 0.87 m/s MV DecT: 174 ms MV A [place]: 0.95 m/s MV E/A Ratio: 0.92 RAP: 5.00 mmHg RVSP: 62.05 mmHg FINDINGS -------- This was a technically difficult study with suboptimal views. The left ventricular size is normal. There is mild concentric left ventricular hypertrophy. Overa ll left ventricular systolic function is moderately impaired with, an EF between 35 - 40 %. The right ventricle is mildly enlarged. The right ventricular systolic function is normal. The left atrial size is normal. The right atrial size is normal. Lumason used The aortic valve was not well visualized. The mitral valve is normal. There is trace mitral regurgitation. The tricuspid valve appears structurally normal. Mild tricuspid regurgitation present. There is m oderate pulmonary hypertension. The right ventricular systolic pressure, as measured by Doppler, is 62.05mmHg. There is no pulmonic regurgitation present. The aortic root size is normal. IVC Not well visulized. There is no pericardial effusion. CONCLUSIONS -------- 1. The left ventricular size is normal. 2. There is mild concentric left ventricular hypertrophy. 3. Overall left ventricular systolic function is moderately impaired with, an EF between 35 - 40 %. 4. The right ventricle is mildly enlarged. 5. There is trace mitral regurgitation. 6. Mild tricuspid regurgitation present. 7. There is moderate pulmonary hypertension. 8. The right ventricular systolic pressure, as measured by Doppler, is 62.05mmHg. 9. There is no pericardial effusion. TOBACCO CURER: Angella Dominguez RDCS
[2021-03-24 11:08] LABS: INR 1.1 (<1.2); Partial Thromboplastin Time 39.9 sec (22.0-30.0); Prothrombin Time 11.9 sec (9.0-12.0)
[2021-03-24 11:22] LABS: African American GFR (CKD) >90 (>60 ml/min/1.73 sqM); Anion Gap 6 mmol/L; Blood Urea Nitrogen 11 mg/dL (9-20); Calcium 8.8 mg/dL (8.4-10.2); Carbon Dioxide 27 mmol/L (22-30); Chloride 103 mmol/L (98-107); Glucose 153 mg/dL (74-99); Non-African American GFR(CKD) >90 (>60 ml/min/1.73 sqM); Potassium 4.3 mmol/L (3.5-5.1); Sodium 136 mmol/L (137-145)
--- NOTE | 2021-03-24 13:05 | P.PN ---
Subjective Progress Note Date: 03/24/21 Principal diagnosis: Acute pulmonary embolism This is a very pleasant 75-year-old gentleman who follows with Dr. Freire as his primary care provider. He has a history of coronary artery disease with previous PTCA [facility] in 1989 and subsequent coronary artery bypass grafting in 2007. Recently he has started to develop significant shortness of breath with minimal exertion. He presented here to the emergency room for the same. White count 4.9. Hemoglobin 14.6. Platelets 121. D-dimer 3.53. Sodium 140. Potassium 4.5. Creatinine 0.78. Troponin 0.051. ProBNP 2009. Coronal virus not detected. X-ray revealed some mild cardiomegaly with strandy basilar atelectasis. CT angiogram revealed bilateral pulmonary emboli including saddle embolus. Pertinent his right greater than left. Moderate to severe burden on the right extending throughout the right upper, middle and lower lobes. More mild burden on the left. No CT evidence for right heart strain. Echocardiogram is pending. Cardiac rhythm is sinus. He is seen in consultation in the emergency room. He is currently resting fairly comfortably on the stretcher. He denies any worsening shortness of breath, cough or congestion. No hemoptysis. He is maintaining good O2 saturations in the 90s on room air at rest. He is afebrile. Hemodynamically stable. He denies any chest pain. The patient denies any extended travel. No trauma. No history of cancer. He has been initiated on a heparin drip. Reevaluated today on 03/24/2021, patient just came back from his mechanical thrombolysis with ekos, the procedure went uneventful. Patient is back in the ICU, doing quite well. Denies any shortness of breath, denies any pain. Continues to have catheter is in place. Patient presented initially with saddle pulmonary emboli, he was also noted to have troponin leak, as well as elevated right ventricular systolic pressure greater than 60. Hence it was felt that thrombolysis for this patient will twice a day. And this was done today. Pulmonary-velarde the patient is doing better, no cough no wheezing no chest pain. CBC is relatively normal fibrinogen is 450 PTT is 40 electrolytes are normal and renal profile is normal. Objective - Vital Signs Vital signs: Vital Signs Temp 98.1 F 03/24/21 12:00 Pulse 86 03/24/21 12:00 Resp 14 03/24/21 12:00 BP 133/74 03/24/21 12:00 Pulse Ox 90 L 03/24/21 12:00 Intake & Output 03/23/21 03/24/21 03/24/21 18:59 06:59 18:59 Intake Total 325.892 500.0 Output Total 250 1125 300 Balance -250 -799.108 200.0 Weight 88.904 kg 87.5 kg Intake: IV 50 Intake, IV Titration 325.892 390.0 Amount Alteplase 10 mg In Sodium 20 Chloride 0.9% 100 ml @ 1 MG/HR 10 mls/hr IV .Q10H [facility] Rx#:[id number] Alteplase 10 mg In Sodium 20 Chloride 0.9% 100 ml @ 1 MG/HR 10 mls/hr IV .Q10H [facility] Rx#:[id number] Clevidipine Butyrate 25 83.000 50.0 mg In Empty Bag 1 bag @ 1 MG/HR 2 mls/hr IV .Q24H [facility] Rx#:[id number] Heparin Sod,Pork in 0.45% 242.892 NaCl 25,000 unit In 0.45 % NaCl 1 250ml.bag @ 18 UNITS/KG/HR 16.003 mls/hr IV .[id number] [facility] Rx#: [id number] Heparin Sod,Pork in 0.45% 5.0 NaCl 25,000 unit In 0.45 % NaCl 1 250ml.bag @ 2.5 mls/hr IV .Q24H [facility] Rx#: [id number] Heparin Sod,Pork in 0.45% 5.0 NaCl 25,000 unit In 0.45 % NaCl 1 250ml.bag @ 2.5 mls/hr IV .Q24H [facility] Rx#: [id number] Sodium Chloride 0.9% 1, 70 000 ml @ 35 mls/hr IV . Q24H [facility] Rx#:[id number] Sodium Chloride 0.9% 1, 70 000 ml @ 35 mls/hr IV . Q24H [facility] Rx#:[id number] Sodium Chloride 0.9% 1, 150 000 ml @ 75 mls/hr IV . [id number] [facility] Rx#:[id number] Oral 60 Output: Urine 250 1125 300 Other: Voiding Method Urinal Urinal Urinal # Voids 1 # Bowel Movements 1 - Exam Physical Exam revealed a 75-year-old white male in no distress, extremely pleasant. Patient is on 2 L nasal cannula with O2 saturation 93% Head: Atraumatic, normocephalic. HEENT:[Neck is supple.] [No neck masses.] [No thyromegaly.] [No JVD.] Chest: [Clear throughout, no crackles, no rhonchi, no wheezes.] Cardiac Exam: [Normal S1 and S2, no S3 gallop, no murmur.] Abdomen: [Soft, nontender, no megaly, no rebound, no guarding, normal bowel sounds.] Extremities: [No clubbing, no edema, no cyanosis.] Neurological Exam: [No focal neurologic deficit.] Alert oriented 3. Psychiatric: Normal mood affect and normal mental status examination. Skin: No rashes - Labs CBC & Chem 7: 03/24/21 10:39 03/24/21 10:39 Labs: Abnormal Lab Results - Last 24 Hours (Table) 03/23/21 03/23/21 03/24/21 Range/Units 14:15 18:23 01:02 Plt Count (150-450) k/uL Lymphocytes # (1.0-4.8) k/uL APTT 91.4 H 43.9 H (22.0-30.0) sec Sodium (137-145) mmol/L Creatinine (0.66-1.25) mg/dL Glucose (74-99) mg/dL POC Glucose (mg/dL) 132 H (75-99) mg/dL 03/24/21 03/24/21 03/24/21 Range/Units 04:51 04:51 10:39 Plt Count 128 L (150-450) k/uL Lymphocytes # (1.0-4.8) k/uL APTT 39.9 H (22.0-30.0) sec Sodium (137-145) mmol/L Creatinine (0.66-1.25) mg/dL Glucose 163 H (74-99) mg/dL POC Glucose (mg/dL) (75-99) mg/dL 03/24/21 03/24/21 Range/Units 10:39 10:39 Plt Count 133 L (150-450) k/uL Lymphocytes # 0.6 L (1.0-4.8) k/uL APTT (22.0-30.0) sec Sodium 136 L (137-145) mmol/L Creatinine 0.64 L (0.66-1.25) mg/dL Glucose 153 H (74-99) mg/dL POC Glucose (mg/dL) (75-99) mg/dL Assessment and Plan Assessment: Impression: Acute massive saddle pulmonary emboli, unprovoked. Status post pharmacal mechanical thrombolysis on 03/24/2021. History of coronary artery disease and previous CABG in 2007, previous PTCA in 1989. Recommendation: Continue present treatment plan as per vascular surgery on the case. Eventually transition the patient to lifelong anticoagulation therapy, would suggest either Xarelto or Eliquis. Will monitor in the ICU for the next 24 hours, and possibly discharge home in 24 hours or possibly in 48 hours. We will continue to follow. Time with Patient: Less than 30
[2021-03-24 15:59] LABS: Basophils % (A) 0 %; Eosinophils % (A) 1 %; HCT 42.3 % (39.0-53.0); HGB 14.3 gm/dL (13.0-17.5); Lymphocytes # (A) 0.9 k/uL (1.0-4.8); Lymphocytes % (A) 16 %; MCH 32.5 pg (25.0-35.0); MCHC 33.8 g/dL (31.0-37.0); MCV 96.2 fL (80.0-100.0); Mean Platelet Volume 7.5; Monocytes # (A) 0.3 k/uL (0-1.0); Monocytes % (A) 5 %; Neutrophils # (A) 4.4 k/uL (1.3-7.7); Neutrophils % (A) 77 %; Platelet Count 127 k/uL (150-450); RDW 13.6 % (11.5-15.5); WBC 5.7 k/uL (3.8-10.6)
--- NOTE | 2021-03-24 21:42 | P.PN ---
Progress Note - Text Progress Note Date: 03/24/21 Patient is doing well. His vital signs are stable. Labs are reviewed. The catheters were removed without issue. We will plan to remove the sheaths and continue bedrest for 2 hours. Then he may set up. Sanchez removed in the morning. Restart heparin after sheaths are pulled. Transition to oral anticoagulation in the morning.
[2021-03-24 22:25] LABS: Basophils % (A) 0 %; Eosinophils % (A) 1 %; HCT 44.1 % (39.0-53.0); Lymphocytes # (A) 0.9 k/uL (1.0-4.8); Lymphocytes % (A) 14 %; MCH 32.8 pg (25.0-35.0); MCV 96.3 fL (80.0-100.0); Mean Platelet Volume 7.4; Monocytes # (A) 0.3 k/uL (0-1.0); Monocytes % (A) 5 %; Neutrophils # (A) 5.2 k/uL (1.3-7.7); Neutrophils % (A) 79 %; Platelet Count 117 k/uL (150-450); RBC 4.58 m/uL (4.30-5.90); RDW 13.4 % (11.5-15.5); WBC 6.6 k/uL (3.8-10.6)
[2021-03-25] MEDS: SODIUM CHLORIDE 0.9% 1,000 ML IV SCH ×3 (03:00→09:14)
[2021-03-25 04:19] LABS: Basophils % (A) 0 %; Eosinophils % (A) 1 %; HCT 41.5 % (39.0-53.0); HGB 14.1 gm/dL (13.0-17.5); Lymphocytes # (A) 0.9 k/uL (1.0-4.8); Lymphocytes % (A) 16 %; MCH 32.8 pg (25.0-35.0); MCHC 33.9 g/dL (31.0-37.0); MCV 96.7 fL (80.0-100.0); Mean Platelet Volume 7.6; Monocytes # (A) 0.3 k/uL (0-1.0); Monocytes % (A) 5 %; Neutrophils # (A) 4.6 k/uL (1.3-7.7); Neutrophils % (A) 77 %; Platelet Count 111 k/uL (150-450); RBC 4.29 m/uL (4.30-5.90); RDW 13.5 % (11.5-15.5); WBC 5.9 k/uL (3.8-10.6)
[2021-03-25] MEDS: amLODIPine 5 MG TAB PO SCH (08:06)
[2021-03-25] MEDS: LOSARTAN 50 MG TAB PO SCH (08:06)
[2021-03-25] MEDS: PANTOPRAZOLE 40 MG/10 ML VIAL IV SCH (08:06)
[2021-03-25] MEDS ORDERED: APIXABAN 5 MG TAB PO SCH (09:00)
--- NOTE | 2021-03-25 12:22 | P.PN ---
Subjective Progress Note Date: 03/25/21 Principal diagnosis: Saddle emboli This is a very pleasant 75-year-old gentleman who follows with Dr. Freire as his primary care provider. He has a history of coronary artery disease with previous PTCA [facility] in 1989 and subsequent coronary artery bypass grafting in 2007. Recently he has started to develop significant shortness of breath with minimal exertion. He presented here to the emergency room for the same. White count 4.9. Hemoglobin 14.6. Platelets 121. D-dimer 3.53. Sodium 140. Potassium 4.5. Creatinine 0.78. Troponin 0.051. ProBNP 2009. Coronal virus not detected. X-ray revealed some mild cardiomegaly with strandy basilar atelectasis. CT angiogram revealed bilateral pulmonary emboli including saddle embolus. Pertinent his right greater than left. Moderate to severe burden on the right extending throughout the right upper, middle and lower lobes. More mild burden on the left. No CT evidence for right heart strain. Echocardiogram is pending. Cardiac rhythm is sinus. He is seen in consultation in the emergency room. He is currently resting fairly comfortably on the stretcher. He denies any worsening shortness of breath, cough or congestion. No hemoptysis. He is maintaining good O2 saturations in the 90s on room air at rest. He is afebrile. Hemodynamically stable. He denies any chest pain. The patient denies any extended travel. No trauma. No history of cancer. He has been initiated on a heparin drip. Reevaluated today on 03/24/2021, patient just came back from his mechanical thrombolysis with ekos, the procedure went uneventful. Patient is back in the ICU, doing quite well. Denies any shortness of breath, denies any pain. Continues to have catheter is in place. Patient presented initially with saddle pulmonary emboli, he was also noted to have troponin leak, as well as elevated right ventricular systolic pressure greater than 60. Hence it was felt that thrombolysis for this patient will twice a day. And this was done today. Pulmonary-velarde the patient is doing better, no cough no wheezing no chest pain. CBC is relatively normal fibrinogen is 450 PTT is 40 electrolytes are normal and renal profile is normal. The patient is seen today 03/25/2021 in follow-up in the intensive care unit. He was originally admitted for submassive pulmonary emboli. Dopplers of the lower extremities were positive for bilateral lower extremity DVTs. Echocardiogram revealed moderate pulmonary hypertension and mildly enlarged right ventricle. Some moderately impaired left ventricular systolic function with ejection fraction 35-40%. He did undergo EKOS procedure yesterday. He is currently sitting up in a chair at the bedside. Awake and alert in no acute distress. He denies any shortness of breath, cough or congestion. He is maintaining good O2 saturations in the 90s on room air. He remains in sinus r hythm. He remains on heparin drip. To be transitioned to Eliquis. White count 5.9. Hemoglobin 14.1. Platelet count 111,000. Objective - Vital Signs Vital signs: Vital Signs Temp 98.5 F 03/25/21 08:00 Pulse 71 03/25/21 11:00 Resp 16 03/25/21 11:00 BP 139/67 03/25/21 10:00 Pulse Ox 94 L 03/25/21 11:00 Intake & Output 03/24/21 03/25/21 03/25/21 18:59 06:59 18:59 Intake Total 1794.167 925 390.7 Output Total 785 700 100 Balance 1009.167 225 290.7 Weight 86.8 kg Intake: IV 50 825 375 Sodium Chloride 0.9% 1, 825 375 000 ml @ 75 mls/hr IV . [id number] [facility] Rx#:[id number] Intake, IV Titration 1624.167 100 15.7 Amount Alteplase 10 mg In Sodium 90 Chloride 0.9% 100 ml @ 1 MG/HR 10 mls/hr IV .Q10H [facility] Rx#:[id number] Alteplase 10 mg In Sodium 90 Chloride 0.9% 100 ml @ 1 MG/HR 10 mls/hr IV .Q10H [facility] Rx#:[id number] Clevidipine Butyrate 25 94.167 100 mg In Empty Bag 1 bag @ 1 MG/HR 2 mls/hr IV .Q24H [facility] Rx#:[id number] Heparin Sod,Pork in 0.45% 15.7 NaCl 25,000 unit In 0.45 % NaCl 1 250ml.bag @ 18 UNITS/KG/HR 15.75 mls/hr IV .[id number] [facility] Rx#: [id number] Heparin Sod,Pork in 0.45% 22.5 NaCl 25,000 unit In 0.45 % NaCl 1 250ml.bag @ 2.5 mls/hr IV .Q24H [facility] Rx#: [id number] Heparin Sod,Pork in 0.45% 22.5 NaCl 25,000 unit In 0.45 % NaCl 1 250ml.bag @ 2.5 mls/hr IV .Q24H [facility] Rx#: [id number] Sodium Chloride 0.9% 1, 315 000 ml @ 35 mls/hr IV . Q24H [facility] Rx#:[id number] Sodium Chloride 0.9% 1, 315 000 ml @ 35 mls/hr IV . Q24H [facility] Rx#:[id number] Sodium Chloride 0.9% 1, 675 000 ml @ 75 mls/hr IV . [id number] [facility] Rx#:[id number] Oral 120 Output: Urine 785 700 100 Other: Voiding Method Indwelling Catheter Indwelling Catheter Urinal # Voids 1 0 # Bowel Movements 1 - Exam GENERAL EXAM: Alert, active, very pleasant 75-year-old gentleman, on room air, comfortable in no apparent distress. HEAD: Normocephalic. EYES: Normal reaction of pupils, equal size. NOSE: Clear with pink turbinates. THROAT: No erythema or exudates. NECK: No masses, no JVD. CHEST: No chest wall deformity. LUNGS: Equal air entry with no crackles, wheeze, rhonchi or dullness. CVS: S1 and S2 normal with no audible murmur, regular rhythm. ABDOMEN: No hepatosplenomegaly, normal bowel sounds, no guarding or rigidity. SPINE: No scoliosis or deformity SKIN: No rashes CENTRAL NERVOUS SYSTEM: No focal deficits, tone is normal in all 4 extremities. EXTREMITIES: Groin puncture sites stable. There is no peripheral edema. No clubbing, no cyanosis. Peripheral pulses are intact. - Labs CBC & Chem 7: 03/25/21 03:35 03/24/21 10:39 Labs: Abnormal Lab Results - Last 24 Hours (Table) 03/24/21 03/24/21 03/25/21 Range/Units 15:41 21:39 03:35 RBC 4.29 L (4.30-5.90) m/uL Plt Count 127 L 117 L 111 L (150-450) k/uL Lymphocytes # 0.9 L 0.9 L 0.9 L (1.0-4.8) k/uL APTT (22.0-30.0) sec 03/25/21 Range/Units 06:44 RBC (4.30-5.90) m/uL Plt Count (150-450) k/uL Lymphocytes # (1.0-4.8) k/uL APTT 49.4 H (22.0-30.0) sec Assessment and Plan Assessment: 1 Dyspnea on exertion secondary to acute saddle emboli with burden right greater than left. Moderate to severe burden on the right extending throughout the right upper, middle and lower lobes. More mild burden on the left. He did undergo an EKOS procedure on 03/24/2021. Currently on a heparin drip. To be transitioned to Eliquis. 2 Bilateral lower extremity DVTs 3 History of coronary artery disease with previous PTCA in 1989 and coronary artery bypass grafting 2007 4 Mild troponin leak with impaired left ventricular systolic function with ejection fraction 35-40% Plan: The patient was seen and evaluated by Dr. Be Oscar from the pulmonary standpoint, on room air To be transitioned to Eliquis Probable home later today I, the cosigning physician, performed a history & physical examination of the patient. Lungs sounds are clear. Maintaining good O2 saturations in the 90s on room air. I discussed the assessment and plan of care with my nurse practitioner, Twila Hurtado. I attest to the above note as dictated by her.
[2021-03-25 13:02] VITALS: TEMP 98.3
[2021-03-25 13:51] LABS: Appearance,Urine Clear (Clear); Bacteria,Urine Rare /hpf; Bilirubin,Urine Negative (Negative); Blood,Urine Trace (Negative); Color,Urine Yellow; Glucose,Urine (UA) Negative (Negative); Hyaline Casts,Urine 1 /lpf (0-2); Ketones,Urine 1+ (Negative); Leukocyte Esterase,Urine Negative (Negative); Mucus,Urine Moderate /hpf; Nitrite,Urine Negative (Negative); PH, Urine 5.5 (5.0-8.0); Protein,Urine Trace (Negative); RBC,Urine 2 /hpf (0-5); Specific Gravity,Urine 1.023 (1.001-1.035); WBC,Urine 4 /hpf (0-5)
[2021-03-25 15:36] VITALS: BP 136/73; PULSE 74; RESP 21
--- NOTE | 2021-03-26 00:31 | P.DS ---
Providers Date of admission: 03/23/21 12:47 Attending physician: Wong Porras MD Consults: 03/23/21 12:35 Consult Physician Routine Consulting Provider: Edith Sanchez Consult Reason/Comments: saddle PE Do you want consulting provider notified?: Already Contacted 03/23/21 12:44 Consult Physician Stat Consulting Provider: Latricia Lr Consult Reason/Comments: icu patient Do you want consulting provider notified?: Already Contacted Primary care physician: Linda Bob Hospital Course: Diagnoses: Acute saddle pulmonary embolism, status post thrombolyzes with EKOS. Patient will be discharged on Eliquis Mild acute hypoxic respiratory failure. Resolved Bilateral total for DVT Hypertension Troponin leak secondary to pulmonary embolism History of coronary artery disease status post PCI and CABG Hospital course: This is a pleasant 75 years old male with past medical history of coronary artery disease status post stent placement and CABG Patient presents with gradually worsening dyspnea over one month, CT of the chest: Exam is positive for bilateral pulmonary emboli included saddle embolus. [place] is right greater than left. Moderate to severe burden on the right extending throughout the right upper, middle and lower lobes. Mild emphysema. A 5 mm right mid lung pulmonary nodule with recommendation for follow-up in 6 months Ultrasound of the legs showing bilateral deep venous thrombosis. Because patient had saddle pulmonary embolism which is submassive vascular surgery was consulted and patient underwent thrombolysis of the PE with Altace and EKOS. 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 Today he was sitting in chair, stating that his dyspnea has resolved. 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 He Denies Chest Pain. No Change in Urine or Bowel Habits. No Fever. Patient Was Eager to Go Home Today. Was Cleared for Discharge by Both Pulmonary and Vascular Surgery Teams. I Discussed the Case with Both Services who Cleared Him Today. Problems and management plan were discussed with the patient and he verbalized understanding and acceptance Patient was found stable and can be discharged home however he needs follow-up as an outpatient. Patient was instructed to follow up with PCP Dr. Freire within one week and patient agrees with the appointments made for him on 03/28 and him and his son stated that he will follow-up. Also patient was instructed to follow up with Dr. Sanchez in 1-2 weeks and he agrees to call and make his own appointment Eliquis is provided and wasn't available at bedside on discharge day Physical exam Gen: patient is a AAOx3, no distress CVS: S1-S2, RRR, no murmur Lungs: B/L CTA, no wheezing Abdomen: soft, no distention, no tenderness, positive bowel sounds Extremity: no leg edema or induration Time spent more than 35 minutes Patient Condition at Discharge: Stable Plan - Discharge Summary Discharge Rx Participant: No New Discharge Prescriptions: New Apixaban [Eliquis] 5 mg PO BID 30 Days #60 tab RX: Losartan [Cozaar] 50 mg PO DAILY #30 tab RX: amLODIPine [Norvasc] 5 mg PO BID #60 tab Continue Prostate Supplement 1 tab PO DAILY RX: Multivitamins, Thera [Multivitamin (formulary)] 1 tab PO DAILY Discontinued Aspirin EC [Ecotrin] 325 mg PO DAILY Discharge Medication List Prostate Supplement 1 tab PO DAILY 03/23/21 [History] RX: Multivitamins, Thera [Multivitamin (formulary)] 1 tab PO DAILY 03/23/21 [History] Apixaban [Eliquis] 5 mg PO BID 30 Days #60 tab 03/25/21 [Rx] RX: Losartan [Cozaar] 50 mg PO DAILY #30 tab 03/25/21 [Rx] RX: amLODIPine [Norvasc] 5 mg PO BID #60 tab 03/25/21 [Rx] Follow up Appointment(s)/Referral(s): Linda Bob MD [Primary Care Provider] - 03/28/21 2:00 pm Edith Sanchez DO [STAFF PHYSICIAN] - 2 Weeks Patient Instructions/Handouts: Pulmonary Embolism (DC), Deep Vein Thrombosis (DC) Activity/Diet/Wound Care/Special Instructions: Heart healthy diet Activity is restricted till you see your doctor Discharge Disposition: HOME SELF-CARE
== END 2021-03-25 15:48 | disposition home or self-care (01) | DRG 166 ==
LOC: EC 10:24 → 2SICU 12:47
PROVIDERS: ADMIT Internal Medicine; ATTEND Internal Medicine
PROC: 02FR3Z0 Fragmentation of Left Pulmonary Artery, Percutaneous Approach, Ultrasonic (ICD-10-PCS; 2021-03-24)
PROC: B54BZZA Ultrasonography of Right Lower Extremity Veins, Guidance (ICD-10-PCS; 2021-03-24)
PROC: B31T1ZZ Fluoroscopy of Left Pulmonary Artery using Low Osmolar Contrast (ICD-10-PCS; 2021-03-24)
PROC: B31S1ZZ Fluoroscopy of Right Pulmonary Artery using Low Osmolar Contrast (ICD-10-PCS; 2021-03-24)
PROC: 02FQ3Z0 Fragmentation of Right Pulmonary Artery, Percutaneous Approach, Ultrasonic (ICD-10-PCS; principal; 2021-03-24 09:30)
DX: I26.92 Saddle embolus of pulmonary artery without acute cor pulmonale (principal); J96.01 Acute respiratory failure with hypoxia; I82.403 Acute embolism and thrombosis of unspecified deep veins of lower extremity, bilateral; J98.11 Atelectasis; I10 Essential (primary) hypertension; I25.10 Atherosclerotic heart disease of native coronary artery without angina pectoris; I25.2 Old myocardial infarction; I27.20 Pulmonary hypertension, unspecified; J43.9 Emphysema, unspecified; Z20.822 Contact with and (suspected) exposure to COVID-19; Z79.01 Long term (current) use of anticoagulants; Z79.82 Long term (current) use of aspirin; Z87.891 Personal history of nicotine dependence; Z95.1 Presence of aortocoronary bypass graft; Z95.5 Presence of coronary angioplasty implant and graft
CPT/HCPCS: 36415; 37211; 71045; 71275; 80048; 81001; 83880; 84484; 85025; 85379; 85384; 85610; 85730; 87635; 93005; 93306; 93970; 99291

== ENCOUNTER → 2021-04-22 | Outpatient (CLI) | payer MEDICARE ==
--- NOTE | 2021-04-22 17:41 | ECHOF ---
Referral Reason:I26.9 PE MEASUREMENTS -------- HEIGHT: 170.2 cm WEIGHT: 86.2 kg BP: RVIDd: 3.1 cm (< 3.3) IVSd: 1.2 cm (0.6 - 1.1) LVIDd: 5.2 cm (3.9 - 5.3) LVPWd: 1.2 cm (0.6 - 1.1) IVSs: 1.3 cm LVIDs: 4.0 cm LVPWs: 1.6 cm LA Diam: 4.0 cm (2.7 - 3.8) Ao Diam: 3.2 cm (2.0 - 3.7) MV EXCURSION: 14.382 mm (> 18.000) MV EF SLOPE: 58 mm/s (70 - 150) EPSS: 0.9 cm MV E [place]: 0.66 m/s MV DecT: 266 ms MV A [place]: 0.88 m/s MV E/A Ratio: 0.75 RAP: 5.00 mmHg RVSP: 33.35 mmHg FINDINGS -------- Sinus rhythm. Echo done 03/27: Echo today for PE. Overall left ventricular systolic function is moderate-severely impaired with, an EF between 30 - 35 %. Posterior hypokinesis Inferior Hypokinesis The right ventricle is normal in size. The left atrial size is normal. The right atrial size is normal. There is mild aortic valve sclerosis. Mild mitral regurgitation is present. Mild tricuspid regurgitation present. Right ventricular systolic pressure is normal at < 35 mmHg. There is no pulmonic regurgitation present. CONCLUSIONS -------- 1. Echo done 03/27: Echo today for PE. 2. Overall left ventricular systolic function is moderate-severely impaired with, an EF between 30 - 35 %. 3. Posterior hypokinesis 4. Inferior Hypokinesis 5. The right ventricle is normal in size. 6. The left atrial size is normal. 7. The right atrial size is normal. 8. There is mild aortic valve sclerosis. 9. Mild mitral regurgitation is present. 10. Mild tricuspid regurgitation present. 11. Right ventricular systolic pressure is normal at < 35 mmHg. 12. There is no pulmonic regurgitation present. CLINICAL ACCOUNT EXECUTIVE: Mary Raymond RDCS
== END | disposition home or self-care (01) ==
LOC: RADECHMAIN 11:16
PROVIDERS: ATTEND Surgery
DX: I08.3 Combined rheumatic disorders of mitral, aortic and tricuspid valves (principal)
CPT/HCPCS: 93306